=== PATIENT | male | born 1980 | race Caucasian/White ===

== ENCOUNTER 2019-06-12 22:12 | Emergency (ER) | payer OTHER ==
--- NOTE | 2019-06-12 22:50 | EDM.PDOC ---
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 Chest Pain Score (Numeric/FACES): 1 - Related Data Allergies Allergy/AdvReac Type Severity Reaction Status Date / Time No Known Allergies Allergy Verified 06/12/19 22:22 Home Meds: Home Meds Propranolol [Inderal LA 24 Hr] 60 mg PO DAILY 06/12/19 [History] traZODone HCl [Trazodone HCl] 50 mg PO DAILY 06/12/19 [History] Past Medical History Psychiatric History: Reports: Anxiety, Depression Social & Family History - Tobacco Use Smoking Status *Q: Former Smoker Used Tobacco, but Quit: Yes Month/Year Tobacco Last Used: 06/08/18 ED ROS GENERAL - Review of Systems Review Of Systems: See Below (denies any more fever, no SOB, dizziness, chills.) ED EXAM, GENERAL - Physical Exam Exam: See Below Exam Limited By: No Limitations General Appearance: Alert, No Apparent Distress Ear Exam: Left Ear: TM Red, Bilateral Ear: TM Dull, TM Bulging Nose: Normal Inspection Throat/Mouth: Inflammation Head: Atraumatic Neck: Normal Inspection Respiratory/Chest: No Respiratory Distress, Lungs Clear, Normal Breath Sounds Course - Vital Signs Last Recorded V/S: Last Vital Signs Temp 36.8 C 06/12/19 22:23 Pulse 74 06/12/19 22:23 Resp 16 06/12/19 22:23 BP 126/81 06/12/19 22:23 Pulse Ox 97 06/12/19 22:23 Departure - Departure Time of Disposition: 22:50 Disposition: Home, Self-Care 01 Condition: Good Clinical Impression: URI (upper respiratory infection) - Discharge Information *PRESCRIPTION DRUG MONITORING PROGRAM REVIEWED*: No *COPY OF PRESCRIPTION DRUG MONITORING REPORT IN PATIENT SHANNON: Not Applicable Instructions: Upper Respiratory Infection, Adult, [id number] Referrals: Tyrell Keys MD [Primary Care Provider] - Forms: ED Department Discharge Additional Instructions: cefuroximine 250mg twice a day for 10 days see primary provider if not better in 3 days. Sepsis Event Note - Evaluation Sepsis Screening Result: No Definite Risk - Focused Exam Vital Signs: Vital Signs Temp Pulse Resp BP Pulse Ox 06/12/19 22:23 36.8 C 74 16 126/81 97 Date Exam was Performed: 06/12/19 Time Exam was Performed: 22:46
== END 2019-06-12 22:55 | disposition home or self-care (01) ==
LOC: VM.ED 22:12
DX: J06.9 Acute upper respiratory infection, unspecified (principal); F32.9 Major depressive disorder, single episode, unspecified; Z79.899 Other long term (current) drug therapy; Z87.891 Personal history of nicotine dependence
CPT/HCPCS: 99284

== ENCOUNTER 2021-01-01 13:10 | Emergency (ER) | payer OTHER ==
[2021-01-01] MEDS ORDERED: Iopamidol 755 Mg/ML 100 ML Bottle IVPUSH ONE (13:30)
[2021-01-01] MEDS ORDERED: Sodium Chloride 0.9% 1,000 ML IV ONE (13:39)
[2021-01-01] MEDS ORDERED: Meclizine 25 MG Tab PO ONE (13:39)
[2021-01-01] MEDS ORDERED: Sodium Chloride 0.9% 10 ML Syringe FLUSH PRN (13:39)
--- NOTE | 2021-01-01 14:20 | EDM.PDOC ---
ED HPI GENERAL MEDICAL PROBLEM - General Chief Complaint: General Stated Complaint: dizziness, dark urine, room spinning Time Seen by Provider: 01/01/21 13:45 Source of Information: Reports: Patient History Limitations: Reports: No Limitations - History of Present Illness INITIAL COMMENTS - FREE TEXT/NARRATIVE: Patient presents to the ED for sudden on set of diziness with room spinning today. 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 He felt fine this morning and after doing some work he headed to his truck to go home for lunch. Had multiple episodes of room spinning, feeling dizzy. He denies any recent illness, no head trauma, no tick or bug bites. Has not had chiropractic manipulation, no head trauma. Has not had covid but has had vaccinations and last one was a week ago. NO fevers or chills, no cough. Spinning is worse with his eyes closed and laying down . Does vape daily, and some alcohol on the weekends. tried to lay down for some rest but still felt dizzy. some diarrhea today, darker urine He became concerned and It did worsen so came to the ED for evaluation. Onset: Sudden Duration: Getting Worse Location: Reports: Head - Related Data Allergies Allergy/AdvReac Type Severity Reaction Status Date / Time No Known Allergies Allergy Verified 01/01/21 13:22 Home Meds: Home Meds Propranolol [Inderal LA 24 Hr] 60 mg PO DAILY 06/12/19 [History] Meclizine [Antivert] 25 mg PO TID #15 tab 01/01/21 [Rx] Past Medical History Psychiatric History: Reports: Anxiety, Depression Social & Family History - Tobacco Use Tobacco Use Within Last Twelve Months: Vaping - Alcohol Use Alcohol Use History: Yes - Recreational Drug Use Recreational Drug Use: No ED ROS GENERAL - Review of Systems Review Of Systems: See Below Constitutional: Reports: No Symptoms. Denies: Fever, Chills HEENT: Reports: No Symptoms. Denies: Nose Pain, Throat Pain, Throat Swelling, Vision Change Respiratory: Reports: No Symptoms. Denies: Shortness of Breath, Cough Cardiovascular: Reports: Lightheadedness. Denies: Chest Pain, Blood Pressure Problem, Dyspnea on Exertion, Edema Endocrine: Reports: No Symptoms GI/Abdominal: Reports: No Symptoms. Denies: Abdominal Pain, Black Stool, Bloody Stool, Diarrhea, Melena : Reports: Other (dark urine) Skin: Reports: No Symptoms Neurological: Reports: Dizziness, Tingling (bilateral hands earlier). Denies: Confusion, Headache, Seizure, Trouble Speaking Psychiatric: Reports: Anxiety ED EXAM, GENERAL - Physical Exam Exam: See Below Exam Limited By: No Limitations General Appearance: Alert, WD/WN, No Apparent Distress Eye Exam: Bilateral Eye: EOMI, Normal Inspection, PERRL Ears: Normal External Exam, Normal Canal, Normal TMs Nose: Normal Inspection, Normal Mucosa, No Blood. No: Nasal Swelling Throat/Mouth: Normal Inspection, Normal Lips, Normal Teeth, Normal Voice Head: Atraumatic, Normocephalic Neck: Normal Inspection, Supple, Non-Tender, Full Range of Motion. No: Limited Range of Motion, Lymphadenopathy (L), Lymphadenopathy (R) Respiratory/Chest: No Respiratory Distress, Lungs Clear, Normal Breath Sounds, No Accessory Muscle Use, Chest Non-Tender Cardiovascular: Normal Peripheral Pulses, Regular Rate, Rhythm, No Edema, No Murmur GI/Abdominal: Normal Bowel Sounds, Soft, Non-Tender Back Exam: Normal Inspection, Full Range of Motion Extremities: Normal Inspection, Normal Range of Motion, Non-Tender, No Pedal Edema, Normal Capillary Refill Neurological: Alert, Oriented, CN II-XII Intact, Normal Cognition, No Motor/Sensory Deficits (normal finger to nose with eyes closed. Very minimal nystagmus, normal mud jack nozzleman strength, normal strength lower extremities,. Normal heel to osborn, slight ataxia with toe walking, normal heel walking) #1 Interpretation EKG Date: 01/01/21 Time: 14:15 Rhythm: NSR Rate (Beats/Min): 63 Gallagher: Normal P-Wave: Present QRS: Normal ST-T: Normal QT: Normal Comparison: NA - No Prior EKG Course - Vital Signs Last Recorded V/S: Last Vital Signs Temp 36.8 C 01/01/21 13:14 Pulse 73 01/01/21 13:14 Resp 16 01/01/21 13:14 BP 154/103 H 01/01/21 13:14 Pulse Ox 99 01/01/21 13:14 - Orders/Labs/Meds Orders: Active Orders 24 hr Category Date Time Status EKG Documentation Completion [RC] STAT Care 01/01/21 13:39 Active Ang Neck [CT] Stat Exams 01/01/21 13:39 Ordered Sodium Chloride 0.9% [Saline Flush] Med 01/01/21 13:39 Active 10 ml FLUSH ASDIRECTED PRN Peripheral IV Insertion Adult [OM.PC] Routine Oth 01/01/21 13:39 Ordered Medication Orders Sodium Chloride (Sodium Chloride 0.9% 10 Ml Syringe) 10 ml FLUSH ASDIRECTED PRN PRN Reason: Keep Vein Open Labs: Laboratory Tests 01/01/21 01/01/21 01/01/21 Range/Units 13:55 13:55 15:03 WBC 8.1 (4.0-10.0) x10^3/uL RBC 4.34 L (4.5-6.0) x10^6/uL Hgb 13.8 L (14.0-18.0) g/dL Hct 39.0 L (40.0-52.0) % MCV 89.9 (78.0-93.0) fL MCH 31.8 (26.0-32.0) pg MCHC 35.4 (32.0-36.0) g/dL RDW Coeff of John 12.8 (10.0-15.0) % Plt Count 276 (130-400) x10^3/uL Neut % (Auto) 61.1 (50.0-80.0) % Lymph % (Auto) 25.8 (25.0-50.0) % Craig % (Auto) 10.7 (2.0-11.0) % Eos % (Auto) 1.7 (0.0-4.0) % Baso % (Auto) 0.7 (0.2-1.2) % ESR 17 H (0-15) mm/hr Sodium 137 (136-145) mmol/L Potassium 4.4 (3.5-5.1) mmol/L Chloride 102 (98-107) mmol/L Carbon Dioxide 27 (21-32) mmol/L Anion Gap 12.4 (5-15) mmol/L BUN 16 (7-18) mg/dL Creatinine 1.2 (0.70-1.30) mg/dL Est Cr Clr Drug Dosing TNP Estimated GFR (MDRD) > 60 Glucose 107 H (70-99) mg/dL Calcium 8.6 (8.5-10.1) mg/dL Corrected Calcium 8.8 (8.5-10.1) mg/dL Total Bilirubin 0.7 (0.2-1.0) mg/dL AST 28 (15-37) U/L ALT 47 (16-63) U/L Alkaline Phosphatase 77 (46-116) U/L Creatine Kinase 153 (39-308) U/L Troponin I High Sens < 4 (<=76) ng/L C-Reactive Protein 0.8 (<=0.9) mg/dL Total Protein 8.0 (6.4-8.2) g/dL Albumin 3.7 (3.4-5.0) g/dL Globulin 4.3 Albumin/Globulin Ratio 0.86 Urine Color Yellow (YELLOW) Urine Appearance Clear (CLEAR) Urine pH 7.0 (5.0-8.0) Ur Specific [place] 1.015 Urine Protein Negative (NEGATIVE) mg/dL Urine Glucose (UA) Negative (NEGATIVE) mg/dL Urine Ketones Negative (NEGATIVE) mg/dL Urine Occult Blood Trace-intact H (NEGATIVE) Urine Nitrite Negative (NEGATIVE) Urine Bilirubin Negative (NEGATIVE) Urine Urobilinogen 0.2 (0.2) EU/dL Ur Leukocyte Esterase Negative (NEGATIVE) Urine RBC 0-5 (NOT SEEN) /HPF Urine WBC Not seen (NOT SEEN) /HPF Ur Squamous Epith Cells Not seen (NOT SEEN) /HPF Urine Bacteria Rare (NOT SEEN) /HPF Urine Mucus Occasional H (NOT SEEN) /LPF Meds: Medications Generic Name Dose Route Start Last Admin Trade Name Freq PRN Reason Stop Dose Admin Sodium Chloride 10 ml 01/01/21 13:39 Sodium Chloride 0.9% 10 Ml Syringe FLUSH ASDIRECTED PRN Keep Vein Open Discontinued Medications Generic Name Dose Route Start Last Admin Trade Name Freq PRN Reason Stop Dose Admin Sodium Chloride 1,000 mls @ 999 mls/hr 01/01/21 13:39 01/01/21 14:21 Normal Saline IV 01/01/21 14:39 999 mls/hr ONETIME ONE Administration Iopamidol 100 ml 01/01/21 13:30 01/01/21 15:45 Iopamidol 755 Mg/Ml 100 Ml Bottle IVPUSH 01/01/21 13:31 100 ml ONETIME ONE Administration Meclizine HCl 25 mg 01/01/21 13:39 01/01/21 14:26 Meclizine 25 Mg Tab PO 01/01/21 13:40 25 mg ONETIME ONE Administration - Radiology Interpretation Free Text/Narrative:: CT head and neck angio, no large vessel occlusion of stenosis or aneurysm ct head non contrast no acute Both studies interpreted by radiology - Re-Assessments/Exams Free Text/Narrative Re-Assessment/Exam: 01/01/21 15:32 will check some labs, urine, ck, trop, ekg and ct head. Will get angios of head and neck due to his slight ataxia with walking. IV fluids, and meclizine po 01/01/21 15:55 Discussed vertigo with the patient. hydrate well, use the meclizine, eppley manuevers, follow up with PCP and physical therapy as needed Departure - Departure Time of Disposition: 15:43 Disposition: Home, Self-Care 01 Clinical Impression: Vertigo - Discharge Information *PRESCRIPTION DRUG MONITORING PROGRAM REVIEWED*: Not Applicable *COPY OF PRESCRIPTION DRUG MONITORING REPORT IN PATIENT SHANNON: Not Applicable Prescriptions: Meclizine [Antivert] 25 mg PO TID #15 tab Instructions: Vertigo, [id number], How to Perform the Chaim Maneuver, Dizziness, [id number] Referrals: Rosemary Mckenzie MD [Primary Care Provider] - Forms: ED Department Discharge, ED Return to Work/School Form Additional Instructions: Hydrate well, use the meclizine every 8 hours as needed for dizziness Try to move your head and neck in one motion, avoid bending over at the waist. Attempt the eppley maneuver at home. If you are continuing with dizziness, physical therapy can help with the eppley maneuver or follow up with your PCP Sepsis Event Note (ED) - Evaluation Sepsis Screening Result: No Definite Risk - Focused Exam Vital Signs: Vital Signs Temp Pulse Resp BP Pulse Ox 01/01/21 13:14 36.8 C 73 16 154/103 H 99 - My Orders Last 24 Hours: My Active Orders 01/01/21 13:39 EKG Documentation Completion [RC] STAT Ang Neck [CT] Stat Sodium Chloride 0.9% [Saline Flush] 10 ml FLUSH ASDIRECTED PRN Peripheral IV Insertion Adult [OM.PC] Routine - Assessment/Plan Last 24 Hours: My Active Orders 01/01/21 13:39 EKG Documentation Completion [RC] STAT Ang Neck [CT] Stat Sodium Chloride 0.9% [Saline Flush] 10 ml FLUSH ASDIRECTED PRN Peripheral IV Insertion Adult [OM.PC] Routine
[2021-01-01 14:24] LABS: CHLORIDE,CL 102 mmol/L (98-107); SODIUM,NA 137 mmol/L (136-145)
[2021-01-01 14:32] LABS: ANION GAP 12.4 mmol/L (5-15)
--- NOTE | 2021-01-01 15:39 | CT ---
[id number] CT/CTA Head EXAM: CTA HEAD NECK. INDICATION: DIZZINESS,SUDDEN ONSET ATAXIA. COMPARISON: None. DISCUSSION: There is a normal three-vessel branch configuration of a left aortic arch. Area of hypodensity within the midportion of the left internal carotid artery appears to be secondary to artifact. The bilateral common, internal and external carotid arteries appear widely patent without significant stenosis or occlusion. The vertebral arteries demonstrate codominant. No dissection is identified. The intracranial portion of the internal carotid arteries are widely patent. Persistent circulation of the right posterior cerebral artery. The anterior, posterior and middle cerebral arteries are symmetric without significant stenosis or occlusion. No aneurysm or dissection. IMPRESSION: 1. No large vessel occlusion or stenosis. No aneurysm identified. Jayjay Bang DO 01/01/21 1538 Thank you for allowing us to participate in the care of your patient.
--- NOTE | 2021-01-01 15:48 | CT ---
[id number] CT/CT Head WO IV EXAM: CT Head WO IV CLINICAL DATA: DIZZINESS,SUDDEN ONSET ATAXIA. COMPARISON STUDY: None FINDINGS: No intracranial hemorrhage, extra-axial fluid collection, mass, or acute ischemia. Soft tissues are unremarkable. Paranasal sinuses and mastoid air cells are clear. IMPRESSION: No acute intracranial findings. Jayjay Bang DO 01/01/21 1547 Thank you for allowing us to participate in the care of your patient.
== END 2021-01-01 16:05 | disposition home or self-care (01) ==
LOC: VM.ED 13:10
DX: R42 Dizziness and giddiness (principal); F17.290 Nicotine dependence, other tobacco product, uncomplicated
CPT/HCPCS: 36415; 70450; 70496; 70498; 80053; 81001; 82550; 84484; 85025; 85652; 86140; 93005; 93010; 99284; 99284-25; A9270-GY; J7030; Q9967

== ENCOUNTER 2021-03-28 10:56 | Emergency (ER) | payer OTHER ==
--- NOTE | 2021-03-28 12:13 | EDM.PDOC ---
ED HPI GENERAL MEDICAL PROBLEM - General Chief Complaint: Neck Problem Stated Complaint: NECK PAIN Time Seen by Provider: 03/28/21 11:17 Source of Information: Reports: Patient - History of Present Illness INITIAL COMMENTS - FREE TEXT/NARRATIVE: Tyrell is a 40 y/o male who comes tot ER after he fell at work. 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 He landed on his back and hit his head on the ground. He is complaining of neck pain. Denies any LOC, no numbness or tingling in any extremities. Able to get up and walk into the ER. Posterior Neck Pain Score (Numeric/FACES): 3 - Related Data Allergies Allergy/AdvReac Type Severity Reaction Status Date / Time No Known Allergies Allergy Verified 03/28/21 11:09 Home Meds: Home Meds Propranolol [Inderal LA 24 Hr] 60 mg PO DAILY 06/12/19 [History] Meclizine [Antivert] 25 mg PO TID #15 tab 01/01/21 [Rx] Past Medical History Neurological History: Reports: Vertigo Psychiatric History: Reports: Anxiety, Depression Social & Family History - Tobacco Use Tobacco Use Status *Q: Unknown Ever Used Tobacco Review of Systems - Review of Systems Review Of Systems: See Below Constitutional: Reports: No Symptoms Eyes: Reports: No Symptoms Ears: Reports: No Symptoms Nose: Reports: No Symptoms Mouth/Throat: Reports: No Symptoms Respiratory: Reports: No Symptoms Cardiovascular: Reports: No Symptoms GI/Abdominal: Reports: No Symptoms Genitourinary: Reports: No Symptoms Musculoskeletal: Reports: Neck Pain Skin: Reports: No Symptoms Neurological: Reports: No Symptoms Psychiatric: Reports: No Symptoms ED EXAM, GENERAL - Physical Exam Exam: See Below Exam Limited By: No Limitations General Appearance: Alert, WD/WN, No Apparent Distress (Adult male, in work clothes. Sitting n chair in ER and doing fine.) Eye Exam: Bilateral Eye: PERRL Ears: Normal External Exam, Normal Canal, Hearing Grossly Normal Nose: Normal Inspection, Normal Mucosa Throat/Mouth: Normal Inspection, Normal Lips, Normal Voice Head: Atraumatic, Normocephalic Neck: Normal Inspection, Other (Note midline tenderness on palpation. ROM not tested.) Respiratory/Chest: No Respiratory Distress, Lungs Clear, Chest Non-Tender Cardiovascular: Normal Peripheral Pulses, Regular Rate, Rhythm, No Murmur GI/Abdominal: Normal Bowel Sounds, Soft (Male) Exam: Deferred Rectal (Males) Exam: Deferred Back Exam: Normal Inspection, Full Range of Motion Extremities: Normal Inspection, Normal Range of Motion, Normal Capillary Refill Neurological: Alert, Oriented, CN II-XII Intact, Normal Cognition, Normal Gait, Normal Reflexes, No Motor/Sensory Deficits Psychiatric: Normal Affect, Normal Mood Skin Exam: Warm, Dry, Intact, Normal Color Course - Vital Signs Text/Narrative:: 1117 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 CTs and CBC ordered. 1246 CTs reviewed. No acute findings. Results reviewed with the patient. Advised supportive cares. Questions answered. He was given written instructions and left the ER in stable condition. Last Recorded V/S: Last Vital Signs Temp 36.2 C 03/28/21 11:00 Pulse 68 03/28/21 11:00 Resp 16 03/28/21 11:00 BP 158/99 H 03/28/21 11:00 Pulse Ox 100 03/28/21 11:00 - Orders/Labs/Meds Orders: Active Orders 24 hr Category Date Time Status CBC WITH AUTO DIFF [HEME] Stat Lab 03/28/21 11:40 Received - Radiology Interpretation Free Text/Narrative:: CT Head WO=no acute findings (See final report) CT CSpine WO=no acute findings (Se final report) Departure - Departure Time of Disposition: 12:46 Disposition: Home, Self-Care 01 Condition: Good Clinical Impression: Neck pain, Work related injury Fall Qualifiers: Encounter type: initial encounter Qualified Code(s): W19.XXXA - Unspecified fall, initial encounter - Discharge Information Instructions: Cervical Sprain, [id number] Referrals: Rosemary Mckenzie MD [Primary Care Provider] - Forms: ED Department Discharge Additional Instructions: -Ibuprofen 200mg 3 tabs orally every 6 hours x 5-7 days then every 6-8 hours as needed (Use over the counter meds) -Ice or heat applied to the area as needed -Rest, Increase activity as able -Follow up with your Primary Care Provider to arrange further diagnostic testing if the pain persists -Return to the ER if any other concerns Sepsis Event Note (ED) - Focused Exam Vital Signs: Vital Signs Temp Pulse Resp BP Pulse Ox 03/28/21 11:00 36.2 C 68 16 158/99 H 100 - Problem List & Annotations (1) Fall SNOMED Code(s): 5215228, 822463167 Code(s): W19.XXXA - UNSPECIFIED FALL, INITIAL ENCOUNTER Status: Acute Current Visit: Yes Qualifiers: Encounter type: initial encounter Qualified Code(s): W19.XXXA - Unspecified fall, initial encounter (2) Neck pain SNOMED Code(s): 13857058 Code(s): M54.2 - CERVICALGIA Status: Acute Current Visit: Yes (3) Work related injury SNOMED Code(s): 84700556 Code(s): Y99.0 - CIVILIAN ACTIVITY DONE FOR INCOME OR PAY Status: Acute Current Visit: Yes Annotation/Comment:: CT negative. Supportive cares advised. - Problem List Review Problem List Initiated/Reviewed/Updated: Yes - My Orders Last 24 Hours: My Active Orders 03/28/21 11:40 CBC WITH AUTO DIFF [HEME] Stat - Assessment/Plan Last 24 Hours: My Active Orders 03/28/21 11:40 CBC WITH AUTO DIFF [HEME] Stat Plan: See above
--- NOTE | 2021-03-28 12:43 | CT ---
[id number] CT/CT Head WO IV EXAM: CT Head WO IV CLINICAL DATA: FALL AT WORK. COMPARISON STUDY: None FINDINGS: No intracranial hemorrhage, extra-axial fluid collection, mass, or acute ischemia. Soft tissues are unremarkable. Paranasal sinuses and mastoid air cells are clear. IMPRESSION: No acute intracranial findings. Jayjay Bang DO 03/28/21 1242 Thank you for allowing us to participate in the care of your patient.
--- NOTE | 2021-03-28 12:46 | CT ---
[id number] CT/CT Cervical Spine WO IV Exam: CT Cervical Spine WO IV CLINICAL DATA: FALL. COMPARISON: None. FINDINGS: No fracture or subluxation is seen. Reversal of the normal cervical lordosis. The C1-C2 articulation is unremarkable. The prevertebral soft tissues are within normal limits. IMPRESSION: NO ACUTE FRACTURE OR SUBLUXATION. Jayjay Bang DO 03/28/21 1245 Thank you for allowing us to participate in the care of your patient.
== END 2021-03-28 12:52 | disposition home or self-care (01) ==
LOC: VM.ED 10:56
DX: S19.9XXA Unspecified injury of neck, initial encounter (principal); W01.0XXA Fall on same level from slipping, tripping and stumbling without subsequent striking against object, initial encounter; Y99.0 Civilian activity done for income or pay
CPT/HCPCS: 36415; 70450; 72125; 85025; 99284-25

== ENCOUNTER 2021-05-22 08:54 | Emergency (ER) | payer OTHER | END 2021-05-22 09:45 | disposition home or self-care (01) | LOC: VM.ED 08:54 | DX: S80.02XA Contusion of left knee, initial encounter (principal); W18.30XA Fall on same level, unspecified, initial encounter; Y92.89 Other specified places as the place of occurrence of the external cause; Y99.0 Civilian activity done for income or pay | CPT/HCPCS: 73564-LT; 99283; 99283-25 ==

== ENCOUNTER 2022-01-19 21:53 | Emergency (ER) | payer OTHER ==
[2022-01-19] MEDS ORDERED: LORazepam 2 MG/ML SDV IVPUSH ONE (23:08)
== END 2022-01-19 23:43 | disposition home or self-care (01) ==
LOC: VM.ED 21:53
DX: F41.9 Anxiety disorder, unspecified (principal); Z79.899 Other long term (current) drug therapy
CPT/HCPCS: 70450; 93010; 96374; 99284; 99285-25; J2060

== ENCOUNTER 2024-04-22 20:43 | Emergency (ER) | payer OTHER ==
[2024-04-22] MEDS: traMADol 50 MG Tab PO ONE (21:11)
== END 2024-04-22 21:57 | disposition home or self-care (01) ==
LOC: VM.ED 20:43
DX: S80.01XA Contusion of right knee, initial encounter (principal); F17.200 Nicotine dependence, unspecified, uncomplicated; Z79.899 Other long term (current) drug therapy; W11.XXXA Fall on and from ladder, initial encounter
CPT/HCPCS: 73562; 99283; A9270

== ENCOUNTER 2025-04-24 05:40 | Emergency (ER) | payer OTHER ==
[2025-04-24] MEDS: Ondansetron 4 MG/2 ML SDV IVPUSH ONE (06:23)
[2025-04-24 06:35] LABS: A/G RATIO 0.89; ALANINE AMINOTRANSFERASE,ALT 26.0 U/L (16-63); ASPARTATE AMNIOTRANSFERASE,AST 25.0 U/L (15-37); BILIRUBIN TOTAL 1.2 mg/dL (0.2-1.0); BLOOD UREA NITROGEN,BUN 11.0 mg/dL (7-18); CARBON DIOXIDE,CO2 27.0 mmol/L (21-32); CHLORIDE,CL 99.0 mmol/L (98-107); CREATININE 1.0 mg/dL (0.70-1.30); EST CRCL DRUG DOSING (CG) 103.47 mL/min; GLUCOSE RANDOM 78.0 mg/dL (70-99); POTASSIUM,K 3.3 mmol/L (3.5-5.1); PROTEIN TOTAL,TP 8.3 g/dL (6.4-8.2); SODIUM,NA 139.0 mmol/L (136-145)
[2025-04-24 06:37] LABS: ESTIMATED GFR 95.0 mL/min (>=60)
[2025-04-24 06:42] LABS: BASOPHILS ABSOLUTE AUTO 0.1 x10^3/uL (0.0-0.2); BASOPHILS PERCENT AUTO 0.4 % (0.2-1.2); EOSINOPHILS ABSOLUTE AUTO 0.1 x10^3/uL (0.0-0.5); EOSINOPHILS PERCENT AUTO 0.6 % (0.0-4.0); IMMATURE GRAN ABSOLUTE AUTO 0.01 x10^3/uL (0.00-0.07); IMMATURE GRAN PERCENT AUTO 0.10 % (0.00-0.43); LYMPHOCYTES ABSOLUTE AUTO 1.8 x10^3/uL (1.0-4.8); LYMPHOCYTES PERCENT AUTO 14.4 % (25.0-50.0); MONOCYTES ABSOLUTE AUTO 0.9 x10^3/uL (0.0-0.8); MONOCYTES PERCENT AUTO 7.3 % (2.0-11.0); NEUTROPHILS ABSOLUTE AUTO 9.6 x10^3/uL (1.8-7.7); NEUTROPHILS PERCENT AUTO 77.2 % (50.0-80.0); PLATELET COUNT,PLT 307 x10^3/uL (130-400); RED BLOOD CELL COUNT 5.00 x10^6/uL (4.5-6.0); WHITE BLOOD CELL COUNT,WBC 12.4 x10^3/uL (4.0-10.0)
[2025-04-24] MEDS: hydrALAZINE 20 MG/ML SDV IVPUSH ONE (06:57)
[2025-04-24] MEDS: Ketorolac 30 MG/ML SDV IVPUSH ONE (07:53)
== END 2025-04-24 08:26 | disposition home or self-care (01) ==
LOC: VM.ED 05:40
DX: R51.9 Headache, unspecified (principal); R11.2 Nausea with vomiting, unspecified; I10 Essential (primary) hypertension; Z79.899 Other long term (current) drug therapy
CPT/HCPCS: 70450; 80053; 85025; 96374; 96375; 99284; J0360; J1885; J2405; J2765